=== PATIENT | female | born 1985 | race African-American/Black ===

== ENCOUNTER 2016-09-12 23:04 | Emergency (ER) | payer OTHER ==
[~2016-09-12] VITALS: Ht 175.3 cm; Wt 81.8 kg
[~2016-09-12 23:04] MED LIST: AMOXICILLIN875 MG PO; CLINDAMYCIN HC300 MG PO; ERYTHROMYC1 APPLICAT RIGHT EYE; FLEXERIL10 MG PO; HYDROCODON-ACE1 EAC7 PO; MOTRIN800 MG PO; NAPROSYN500 MG PO; NOHOMEMEDS; PEN-VEE K,VEET500 MG PO; TRAMADOL HCL50 MG PO; ULTRAM50 MG PO; VICODIN,LORT1 TABLET PO
[2016-09-13] MEDS ORDERED: VALIUM5 MG PO (01:36)
[2016-09-13] MEDS ORDERED: INDOCIN50 MG PO (01:36)
[2016-09-13] MEDS ORDERED: ULTRACET1 TABLET PO (01:37)
[2016-09-13 01:52] VITALS: BP 170/105
== END 2016-09-13 02:07 | disposition home or self-care (01) ==
LOC: EME 23:04
DX: S39.012A Strain of muscle, fascia and tendon of lower back, initial encounter (principal); S16.1XXA Strain of muscle, fascia and tendon at neck level, initial encounter; S70.01XA Contusion of right hip, initial encounter; V49.40XA Driver injured in collision with unspecified motor vehicles in traffic accident, initial encounter; Z88.6 Allergy status to analgesic agent
CPT/HCPCS: 72040; 73502; 99281; 99284